=== PATIENT | female | born 1970 ===

== ENCOUNTER 2017-06-08 07:25 | Day surgery (SDC) | payer OTHER | END 2017-06-08 13:35 | disposition home or self-care (01) | LOC: AMB-ENDOS 07:25 | DX: D12.5 Benign neoplasm of sigmoid colon (principal); K63.5 Polyp of colon ==

== ENCOUNTER → 2017-08-05 | Day surgery (SDC) | payer OTHER ==
[~2017-08-05] VITALS: Ht 162.6 cm; Wt 72.6 kg
[~2017-08-05] MED LIST: ZANTAC300 MG PO
== END | disposition home or self-care (01) ==
LOC: ADM 07-28 12:30 → EDSTATUS 07-28 12:30 → SURH 05:40 → O/R 05:40 → CIR.AMB 09:00 → EDSTATUS 12:30 → SURH 12:30
DX: D12.2 Benign neoplasm of ascending colon (principal); D12.3 Benign neoplasm of transverse colon; K56.51 Intestinal adhesions [bands], with partial obstruction

== ENCOUNTER 2019-12-26 05:47 | Day surgery (SDC) | payer OTHER | END 2019-12-26 11:25 | disposition home or self-care (01) | LOC: AMB-ENDOS 05:47 | PROVIDERS: ATTEND Colon & Rectal Surgery | DX: D12.2 Benign neoplasm of ascending colon (principal); K64.8 Other hemorrhoids; Z12.11 Encounter for screening for malignant neoplasm of colon; Z20.828 Contact with and (suspected) exposure to other viral communicable diseases ==